=== PATIENT | male | born 2000 | race Caucasian/White ===

== ENCOUNTER 2022-04-13 22:09 | Emergency (ER) | payer OTHER ==
[~2022-04-13] VITALS: Ht 182.9 cm; Wt 126.1 kg
[~2022-04-13 22:09] MED LIST: ACET-10509 PO; IBUP-121 PO
[2022-04-13 22:11] VITALS: BP 140/70
--- NOTE | 2022-04-13 22:17 | NUR ---
PT AMBUALTED TO LOBBY
--- NOTE | 2022-04-14 01:25 | NUR ---
ambulated to bed #07
--- NOTE | 2022-04-14 01:26 | NUR ---
RECEIVED IN BED 7 WITH C/O BILATERAL INGROWN TOENAIL x2 MONTHS MEDHX- DENIES NKA
[2022-04-14] MEDS ORDERED: BACITRACIN OP OINT 500 UNITS/GM 3.5 GM TUBE OP SCH (02:15)
[2022-04-14] MEDS ORDERED: LIDOCAINE MPF 1% 10 MG/ML VIAL INJ ONE (02:15)
[2022-04-14] MEDS ORDERED: LIDOCAINE 2% 1000 MG/50 ML VIAL INJ ONE (02:21)
[2022-04-14] MEDS ORDERED: NAPR-54 PO (02:53)
[2022-04-14] MEDS ORDERED: CEPH-588 PO (02:53)
[2022-04-14 03:05] VITALS: BP 140/70
--- NOTE | 2022-04-14 03:05 | NUR ---
Patient discharged with v/s stable. Written and verbal after care instructions given and explained. Patient alert, oriented and verbalized understanding of instructions. Ambulatory with steady gait. All questions addressed prior to discharge. ID band removed. Patient advised to follow up with PMD. Rx of KEFLEX AND NAPROSYN given. Patient educated on indication of medication including possible reaction and side effects. Opportunity to ask questions provided and answered.
== END 2022-04-14 03:05 | disposition home or self-care (01) ==
LOC: MED 22:09
DX: L60.0 Ingrowing nail (principal)
CPT/HCPCS: 11730; 99284; J2001

== ENCOUNTER 2023-01-19 04:47 | Emergency (ER) | payer OTHER ==
[~2023-01-19] VITALS: Ht 185.4 cm; Wt 108.9 kg
[~2023-01-19 04:47] MED LIST changes: +CEPH-588 PO; +NAPR-54 PO
[2023-01-19 04:50] VITALS: BP 139/96
--- NOTE | 2023-01-19 04:50 | NUR ---
TO BED AMBULATORY
--- NOTE | 2023-01-19 05:00 | NUR ---
PT ON BED, A/OX4, NOT IN DISTRESS, CHEST RISING AND FALL SYMMETRICAL, ON MONITOR
[2023-01-19] MEDS ORDERED: LIDOCAINE 1% 500 MG/ 50 ML VIAL INJ ONE (06:25)
[2023-01-19] MEDS ORDERED: cephALEXin 500 MG CAP PO ONE (06:25)
[2023-01-19] MEDS ORDERED: IBUPROFEN 600 MG TAB PO ONE (06:25)
[2023-01-19] MEDS ORDERED: LIDOCAINE MPF 1% 5 ML ONE (06:39)
--- NOTE | 2023-01-19 07:19 | NUR ---
REPORT GIVEN TO AM SHIFT IRAM BURK. IRAM BURK VERBALIZED UNDERSTANDING. NO FURTHER QUESTION ASKED
--- NOTE | 2023-01-19 07:32 | NUR ---
pt in room 12, awaits procedure to be done by md, no distress noted
[2023-01-19] MEDS ORDERED: LIDOCAINE 2% 1000 MG/50 ML VIAL INJ ONE (09:09)
[2023-01-19] MEDS ORDERED: LIDOCAINE 2% 100 MG/5 ML UJET TP ONE (09:10)
[2023-01-19] MEDS ORDERED: CEPH250C16 PO (09:21)
--- NOTE | 2023-01-19 09:27 | NUR ---
Patient discharged with v/s stable. Written and verbal after care instructions given and explained. Patient verbalized understanding. Ambulatory with steady gait. All questions addressed prior to discharge. Advised to follow up with PMD.
[2023-01-19 09:35] VITALS: BP 126/72
== END 2023-01-19 09:27 | disposition home or self-care (01) ==
LOC: MED 04:47
DX: L60.0 Ingrowing nail (principal); L03.032 Cellulitis of left toe; Z79.899 Other long term (current) drug therapy
CPT/HCPCS: 11730; 99284; J2001

== ENCOUNTER 2023-05-31 05:53 | Emergency (ER) | payer OTHER ==
[~2023-05-31] VITALS: Ht 185.4 cm; Wt 117.9 kg
[~2023-05-31 05:53] MED LIST changes: +CEPH250C16 PO
[2023-05-31 05:59] VITALS: BP 144/77; PULSE 112; RESP 18; TEMP 98.8; O2SAT 97
[2023-05-31] MEDS ORDERED: NACL 0.9% 1,000 ML IV SCH (06:10)
[2023-05-31] MEDS ORDERED: ONDANSETRON 4 MG/2 ML VIAL IVP ONE (06:10)
[2023-05-31] MEDS ORDERED: ACETAMINOPHEN EXTRA STRENGTH 500 MG TAB PO ONE (06:15)
[2023-05-31] MEDS ORDERED: KETOROLAC 30 MG/ML VIAL IVP ONE (06:15)
[2023-05-31 07:04] LABS: BASOPHILS # (AUTO) 0.1 K/uL (0.00-0.22); BASOPHILS % (AUTO) 0.8 % (0.0-2.0); HEMATOCRIT 41.3 % (36-52); HEMOGLOBIN 13.7 g/dL (12.0-18.0); LYMPHOCYTES # (AUTO) 0.7 K/uL (2.0-11.5); LYMPHOCYTES % (AUTO) 5.5 % (20.5-51.1); MEAN CORPUSCULAR HEMOGLOBIN 25 pg (27-31); MEAN CORPUSCULAR HGB CONC 33 g/dL (33-37); MEAN CORPUSCULAR VOLUME 75.5 fL (80-94); MONOCYTES # (AUTO) 0.8 K/uL (0.8-1.0); MONOCYTES % (AUTO) 6.2 % (1.7-9.3); NEUTROPHILS # (AUTO) 11.2 K/uL (1.8-7.7); NEUTROPHILS % (AUTO) 87.5 % (42.2-75.2); PLATELET COUNT (AUTO) 257 K/uL (140-450); RED BLOOD CELL COUNT(AUTO) 5.47 MIL/uL (4.20-6.10); RED CELL DISTRIBUTION WIDTH 14.9 % (11.6-13.7); WHITE BLOOD COUNT (AUTO) 12.9 K/uL (4.8-10.8)
[2023-05-31 07:22] LABS: ALBUMIN 3.9 g/dL (3.4-5.0); ANION GAP 17.4 (8-16); CALCIUM 8.5 mg/dL (8.5-10.1); CARBON DIOXIDE 23.8 mmol/L (21-32); CREATININE 1.1 mg/dL (0.6-1.3); POTASSIUM 3.2 mmol/L (3.5-5.1); TOTAL BILIRUBIN 0.5 mg/dL (0.0-1.0); TOTAL PROTEIN, SERUM 8.2 g/dL (6.4-8.2)
[2023-05-31] MEDS ORDERED: POTASSIUM CHLORIDE 10 MEQ TABER PO ONE (07:25)
[2023-05-31] MEDS ORDERED: ONDA-188 PO (07:27)
[2023-05-31 07:43] VITALS: O2SAT 97
[2023-05-31 08:08] VITALS: BP 134/78; PULSE 97; TEMP 98.7; O2SAT 17
== END 2023-05-31 08:07 | disposition home or self-care (01) ==
LOC: MED 05:53
DX: B34.9 Viral infection, unspecified (principal); R11.2 Nausea with vomiting, unspecified; Z79.899 Other long term (current) drug therapy; Z79.2 Long term (current) use of antibiotics; Z79.1 Long term (current) use of non-steroidal anti-inflammatories (NSAID)
CPT/HCPCS: 80053; 83690; 85025; 96361; 96374; 96375; 99284; J1885; J2405; J7030